=== PATIENT | female | born 1940 | race Caucasian/White ===

== ENCOUNTER → 2024-05-31 15:48 | Outpatient (REF) | payer MEDICARE, SELFPAY | LOC: ANHLAB 15:48 | PROVIDERS: PCP Family Medicine; Visit Provider Plastic Surgery | DX: L82.1 Other seborrheic keratosis (principal) | CPT/HCPCS: 88305 ==

== ENCOUNTER 2024-10-12 13:41 | Outpatient (CLI) | payer MEDICARE, SELFPAY ==
--- NOTE | ~2024-10-12 | US_ITS ---
EXAMINATION: US right upper quadrant DATE: 10/12/2024 15:11 INDICATION: Abnormal liver function tests. TECHNIQUE: Multiple grayscale and Doppler ultrasound images of the abdomen were obtained. COMPARISON: None FINDINGS: The visualized portions of the head and body of the pancreas are normal. There is diffuse h epatic steatosis. There is normal flow in main portal vein. The gallbladder is normal in size. No gal lstones or gallbladder wall thickening. There is no sonographic Yin's sign. The common duct is nor mal and measures 3 mm. IMPRESSION: 1. Diffuse hepatic steatosis. Reviewed, dictated and finalized at location A. T [employer]
== END 2024-10-12 13:42 | disposition home or self-care (01) ==
PROVIDERS: PCP Physician Assistant; Visit Provider Physician Assistant
DX: K76.0 Fatty (change of) liver, not elsewhere classified (principal); R74.01 Elevation of levels of liver transaminase levels
CPT/HCPCS: 76705

== ENCOUNTER 2025-10-24 15:03 | Outpatient (CLI) | payer MEDICARE, SELFPAY ==
--- NOTE | ~2025-10-24 | MM_ITS ---
EXAMINATION: screening [facility] BI w [facility]on INDICATION: Asymptomatic, referred for screening mammogram COMPARISON: None available TECHNIQUE: Digital Breast Tomosynthesis CC, MLO views of Both breasts were obtained with computer-aided detection to assist in interpretation of the study. FINDINGS: There are scattered areas of fibroglandular density. There is an asymmetry seen on the cc view in the Lateral right breast at anterior third. Elsewhere, there are no mammographic features of malignancy. IMPRESSION: 1. Right breast Asymmetry. 2. No evidence of malignancy in the Left breast. RECOMMENDATION: Right breast Diagnostic mammogram with true lateral, appropriate spot compression views and an ultrasound if needed. BI-RADS Category 0: Incomplete: Needs additional imaging evaluation. Reviewed, dictated and finalized at location A. NG LAYER IMPRESSION: 1. Right breast Asymmetry. 2. No evidence of malignancy in the Left breast. RECOMMENDATION: Right breast Diagnostic mammogram with true lateral, appropriate spot compressi on views and an ultrasound if needed. BI-RADS Category 0: Incomplete: Needs additional imaging evaluation.
== END 2025-10-24 15:04 | disposition home or self-care (01) ==
LOC: ANHFOHIMG 15:05
PROVIDERS: PCP Physician Assistant
DX: Z12.31 Encounter for screening mammogram for malignant neoplasm of breast (principal); R92.8 Other abnormal and inconclusive findings on diagnostic imaging of breast
CPT/HCPCS: 77063; 77067